=== PATIENT | female | born 1950 | race Caucasian/White ===

== ENCOUNTER 2018-08-17 07:46 | Emergency (ER) | payer BC ==
[2018-08-17 08:02] VITALS: BP 137/83
--- NOTE | 2018-08-17 08:07 | UC ---
Skin Complaint HPI - HPI Summary HPI Summary: 67 yo female presents with ?bug bite to left thigh. She tells me that she noticed this 4 days ago and it was mildly itchy at first and the next day noticed some bruising around the area. She was telling her friend about this and her friend suggested she get it checked out. Unsure what insect bit her. Has been outdoors, but has been wearing layers and covered at all times. Currently the area is mildly red, but not painful, itchy, or draining. - History of Current Complaint Chief Complaint: UCGeneralIllness Time Seen by Provider: 08/17/18 08:07 Stated Complaint: SKIN ISSUE Hx Obtained From: Patient Onset/Duration: Sudden Onset Current Severity: None Pain Intensity: 0 - Allergy/Home Medications Allergies/Adverse Reactions: Allergies Allergy/AdvReac Type Severity Reaction Status Date / Time No Known Allergies Allergy Verified 08/17/18 08:02 Home Medications: Home Medications NK [No Home Medications Reported] 08/17/18 [History Confirmed 08/17/18] Review of Systems All Other Systems Reviewed And Are Negative: Yes Constitutional: Positive: Negative Skin: Positive: Other - Bug bite left thigh Respiratory: Positive: Negative Cardiovascular: Positive: Negative Gastrointestinal: Positive: Negative Neurovascular: Positive: Negative Neurological: Positive: Negative Psychological: Positive: Negative PMH/Surg Hx/FS Hx/Imm Hx - Additional Past Medical History Additional PMH: None - Surgical History Surgical History: None - Family History Known Family History: Positive: None - Social History Lives: With Family Alcohol Use: Daily Alcohol Amount: wine Substance Use Type: None Smoking Status (MU): Never Smoked Tobacco - Immunization History Most Recent Tetanus Shot: UNK Physical Exam - Summary Physical Exam Summary: GENERAL: NAD. WDWN. No pain distress. SKIN: LEFT anterior thigh: 5mm area of mild erythema with faint surrounding ecchymosis extending 2.5cm. NTTP. No streaking, edema, or drainage. NECK: Supple. Nontender. No lymphadenopathy. CHEST: No accessory muscle use. Breathing comfortably and in no distress. CV: Pulses intact. Cap refill <2seconds NEURO: Alert. PSYCH: Age appropriate behavior. Triage Information Reviewed: Yes Vital Signs: Initial Vital Signs Temp 98.7 F 08/17/18 07:57 Pulse 75 08/17/18 07:57 Resp 18 11/19/18 07:57 BP 137/83 08/17/18 07:57 Pulse Ox 99 08/17/18 07:57 Vital Signs Reviewed: Yes Course/Dx - Course Course Of Treatment: Bug bite to left thigh appears consistent with a tick bite. Area is healing well - no treatment at this time. Pt made aware of signs and symptoms of lyme disease and advised to f/u if she develops any of these. - Diagnoses Provider Diagnoses: Tick bite left thigh Discharge - Sign-Out/Discharge Documenting (check all that apply): Patient Departure All imaging exams completed and their final reports reviewed: No Studies - Discharge Plan Condition: Stable Disposition: HOME Patient Education Materials: Lyme Disease (ED), Tick Bite (ED) Referrals: Giana Jordan MD [Primary Care Provider] - Additional Instructions: If you develop a fever, shortness of breath, chest pain, new or worsening symptoms - please call your PCP or go to the ED. Your blood pressure was mildly elevated at todays visit. Please see your primary provider within 4 weeks for recheck and re-evaluation You have been bitten by a tick. Once the tick is removed, these "bites" usually cause no problems. Tick fever, tick paralysis, [place] Spotted fever, and Lyme disease are uncommon -- but you should mention this tick bite to your doctor if you develop unusual symptoms in the next several weeks. If you develop any of the following, please see your physician promptly: (1) Fever, chills, or generalized malaise associated with a headache. (2) A red round area at the site of the bite (or elsewhere) (3) Joint pain, joint swelling or generalized weakness. (4) Redness, swelling, or drainage at the site of the bite. - Billing Disposition and Condition Condition: STABLE Disposition: Home
== END 2018-08-17 08:21 | disposition home or self-care (01) ==
LOC: UCEAST 07:46
DX: T63.481A Toxic effect of venom of other arthropod, accidental (unintentional), initial encounter (principal); Y92.9 Unspecified place or not applicable
CPT/HCPCS: 99211; G0463

== ENCOUNTER 2018-08-19 07:16 | Emergency (ER) | payer BC ==
[2018-08-19 07:26] VITALS: BP 128/60
--- NOTE | 2018-08-19 07:53 | UC ---
Skin Complaint HPI - HPI Summary HPI Summary: PT SEEN HERE 2 DAYS AGO WITH 4 DAY H/O BUG BITE LEFT UPPER THIGH. WAS TOLD IT MAY HAVE BEEN A TICK BITE BUT NO INTERVENTION INDICATED AT THAT TIME. PT RETURNS TODAY CONCERNED THAT THERE MAY BE A PIECE OF THE TICK RETAINED AND WANTS TO TALK ABOUT LYME. SHE OTHERWISE FEELS WELL. NO FEVER, LINDQUIST, BODY ACHES. - History of Current Complaint Chief Complaint: UCSkin Time Seen by Provider: 08/19/18 07:28 Stated Complaint: RECHECK TICK BITE Hx Obtained From: Patient Onset/Duration: Gradual Onset, Lasting Days, Still Present Timing: Constant Onset Severity: Mild Current Severity: Mild Pain Intensity: 0 Pain Scale Used: 0-10 Numeric Character: Redness Aggravating Factor(s): Nothing Alleviating Factor(s): Nothing Related History: Possible Reaction to: Insect - Allergy/Home Medications Allergies/Adverse Reactions: Allergies Allergy/AdvReac Type Severity Reaction Status Date / Time No Known Allergies Allergy Verified 08/19/18 07:26 Review of Systems All Other Systems Reviewed And Are Negative: Yes Constitutional: Positive: Negative Skin: Positive: Other - INSECT BITE LEFT UPPER THIGH Respiratory: Positive: Negative Cardiovascular: Positive: Negative Gastrointestinal: Positive: Negative Musculoskeletal: Positive: Negative PMH/Surg Hx/FS Hx/Imm Hx Previously Healthy: Yes - Surgical History Surgical History: None - Family History Known Family History: Positive: Non-Contributory - Social History Alcohol Use: Daily Alcohol Amount: wine Substance Use Type: None Smoking Status (MU): Never Smoked Tobacco - Immunization History Most Recent Tetanus Shot: UNK Physical Exam Triage Information Reviewed: Yes Appearance: Well-Appearing, No Pain Distress, Well-Nourished Vital Signs: Initial Vital Signs Temp 97.8 F 08/19/18 07:22 Pulse 72 08/19/18 07:22 Resp 18 08/19/18 07:22 BP 128/60 08/19/18 07:22 Pulse Ox 96 08/19/18 07:22 Vital Signs Reviewed: Yes Eyes: Positive: Conjunctiva Clear ENT: Positive: Hearing grossly normal Neck: Positive: Supple Respiratory: Positive: No respiratory distress, No accessory muscle use Cardiovascular: Positive: Pulses Normal Abdomen Description: Positive: Soft Musculoskeletal: Positive: No Edema Neurological: Positive: Alert Psychological: Positive: Age Appropriate Behavior Skin: Positive: Other - 1CM DIAMETER ERYTHEMATOUS AREA AROUND BITE SITE LEFT UPPER THIGH. PINPOINT SCABBED AREA CENTRALLY LOCATED. NO TENDER. NO DRAINAGE Course/Dx - Course Course Of Treatment: ADVISED PATIENT THAT INSECT BITE MAY OR MAY NOT HAVE BEEN A TICK AND THAT SMALL SCABBED AREA AT THE BITE SITE DOES NOT APPEAR TO BE RETAINED TICK PARTS. PATIENT INSISTS THAT I TRY TO REMOVE IT. AREA CLEANSED AND PINPOINT-SIZED SCABBED AREA UNROOFED USING 18-GAUGE NEEDLE AND SPLINTER FORCEPS. NO TICK PARTS EVIDENT. BANDAGE APPLIED. DISCUSSED INDICATIONS FOR LYME DISEASE PROPHYLAXIS. PATIENT DOES NOT MEET CRITERIA TO RECEIVE THIS. ALL QUESTIONS ANSWERED. - Diagnoses Provider Diagnoses: INSECT BITE LEFT UPPER THIGH Discharge - Sign-Out/Discharge Documenting (check all that apply): Patient Departure All imaging exams completed and their final reports reviewed: No Studies - Discharge Plan Condition: Stable Disposition: HOME Patient Education Materials: Insect Bite or Sting (ED) Referrals: Giana Jordan MD [Primary Care Provider] - If Needed Additional Instructions: The Infectious Disease Society of [place] (IDSA) does not generally recommend antimicrobial prophylaxis for prevention of Lyme disease after a recognized tick bite. However, in areas that are highly endemic for Lyme disease, a single dose of doxycycline may be offered to adult patients (200 mg) who are not and to children older than 8 years of age (4 mg/kg up to a maximum dose of 200 mg) when all of the following circumstances exist: CRITERIA FOR RECEIVING PROPHYLACTIC TREATMENT FOR LYME DISEASE 1) TICK ATTACHED FOR AT LEAST 36 HRS 2) TICK IS AN ADULT OR [place] DEER TICK 3) YOU LIVE IN AN AREA WHERE LYME DISEASE IS PREVALENT (i.e., [place], [place], [place], , [place] , [place], [place], [place], [place], [place], [place], [place], [place], [place]) 4) YOU HAVE NO CONTRAINDICATION TO THE MEDICATION (DOXYCYCLINE) 5) PROPHYLAXIS IS BEGUN WITHIN 72 HRS OF TICK REMOVAL SINCE YOU DO NOT MEET ALL THESE CRITERIA THERE IS NO NEED TO GIVE YOU PROPHYLACTIC ANTIBIOTICS. YOUR CHANCES OF DEVELOPING LYME DISEASE ARE EXTREMELY SMALL. BE VIGILANT OF YOUR SYMPTOMS AND DON'T HESITATE TO GET SEEN AGAIN IF YOU DEVELOP UNEXPLAINED FEVER, HEADACHE, JOINT PAIN, BODY ACHES, RASH OR ANY OTHER CONCERNING SYMPTOMS. Antibiotic treatment following a tick bite is not recommended as a means to prevent anaplasmosis, babesiosis, ehrlichiosis, or [place] spotted fever. There is no evidence this practice is effective, and it may simply delay onset of disease. Instead, persons who experience a tick bite should be alert for symptoms suggestive of tickborne illness and consult a physician if fever, rash, headache or other symptoms of concern develop. - Billing Disposition and Condition Condition: STABLE Disposition: Home
== END 2018-08-19 07:52 | disposition home or self-care (01) ==
LOC: UCEAST 07:16
DX: S70.362A Insect bite (nonvenomous), left thigh, initial encounter (principal); W57.XXXA Bitten or stung by nonvenomous insect and other nonvenomous arthropods, initial encounter; Y92.9 Unspecified place or not applicable
CPT/HCPCS: 99211; G0463